=== PATIENT | female | born 1955 | race African-American/Black ===

== ENCOUNTER 2017-03-18 08:16 | Outpatient (CLI) | payer MEDICARE, OTHER ==
--- NOTE | 2017-03-18 11:39 | Ultrasound Report ---
RIGHT UPPER QUADRANT ULTRASOUND: HISTORY: Elevated liver enzymes. Technique: Transabdominal ultrasound imaging with Doppler interrogation. FINDINGS: The gallbladder is normal size, contour and wall thickness. There is a nonmobile 5 mm echogenic structure in the neck of the gallbladder which either represents a non-mobile gallstone or small polyp. The CBD measures 3 mm. The liver parenchyma is echogenic and attenuates the ultrasound beam consistent with fatty infiltration. No focal liver mass. Images of the pancreas, right kidney and aorta are within normal limits. No perihepatic ascites. IMPRESSION: Fatty liver. 5 mm nonmobile gallstone versus polyp. I favor a polyp. No signs of acute cholecystitis.
== END 2017-03-18 08:17 | disposition home or self-care (01) ==
LOC: US 08:16
PROVIDERS: ATTEND Family Medicine
DX: K76.0 Fatty (change of) liver, not elsewhere classified (principal); R74.8 Abnormal levels of other serum enzymes
CPT/HCPCS: 76705

== ENCOUNTER 2017-10-02 11:30 | Day surgery (SDC) | payer MEDICARE, OTHER ==
[2017-10-02] MEDS ORDERED: NACL 0.9% 1000 ML 1,000 ML ONE (13:19)
[2017-10-02] MEDS ORDERED: DIPRIVAN 10 MG/ML IV ONE (14:09)
--- NOTE | 2017-10-02 15:03 | Anesthesia Consultation ---
Anesthesia Consult and Med Hx Date of service: 10/02/17 - Airway Anesthetic Teeth Evaluation: Good ROM Head & Neck: Adequate Mental/Hyoid Distance: Adequate Mallampati Class: Class II Intubation Access Assessment: Probably Good - Pre-Operative Health Status ASA Pre-Surgery Classification: ASA2 Proposed Anesthetic Plan: MAC - Gastrointestinal Hx Gastroesophageal Reflux Disease: Yes
--- NOTE | 2017-10-02 15:03 | Anesthesia Day of Surgery ---
Anesthesia Day of Surgery - Day of Surgery Patient Examined: Yes Patient H&P Reviewed: Yes Patient is NPO: Yes
[2017-10-02 15:12] VITALS: BP 108/58
--- NOTE | 2017-10-02 15:22 | Discharge Summary ---
Short Stay Discharge Plan Activity: advance as tolerated Weight Bearing Status: Weight Bear as Tolerated Diet: regular Additional Instructions: Post Sedation D/C Instructions When you return home you may resume your regular diet unless otherwise directed. -Go directly home from the hospital and rest quietly. You may resume normal activities tomorrow. -Do NOT drive, return to work, operate any machinery or make any important personal or business decisions today. -Do NOT drink any alcohol or take nerve or sleeping drugs. They add to the effects of the medicine still present in your body. Follow up with Dr. Rosas in 2 weeks to obtain pathology results and treatment plan.
--- NOTE | 2017-10-02 15:22 | Operative Report ---
Operative Report Operative Report: Date: 10/02/2017 Operative Report: Date of procedure: 10/02/2017 Procedure: Esophagogastroduodenoscopy with multiple mucosal biopsies. Attending physician: Alex Rosas MD [employer]arn Texture Machine Operator: Alex Rosas MD Indication: Patient is a 62 -year-old female who presented with a history of recurrent epigastric pain, heartburn, dysphagia and indigestion. An upper endoscopy is done to assess patient, so that treatment may be directed based on the findings. Consent: Informed consent was obtained after advising the patient and family regarding nature of this procedure, its indications, potential benefits as well as possible complications including but not limited to bleeding perforation and adverse reaction to medication, infection as well as other cardiopulmonary complications. An informed written and verbal consent was then obtained after due opportunity was provided for questions and answers. Monitoring: Patient was monitored continuously with pulse oximetry and electrocardiographic recordings as well as blood pressure recordings. Vital signs remained stable throughout this procedure with no untoward events. Preoperative assessment: Patient was assessed immediately prior to this procedure for capacity to tolerate monitored anesthesia care and moderate sedation as well as general anesthesia. Patient's ASA classification is 3, Mallampati class is 2, Hyomental distance is 3. Instrument: [facility] video endoscope Medications: Ketamine given intravenously in divided doses. For details please refer to anesthesia records. Description of procedure: Patient was placed in the left lateral decubitus position after achieving sedation, the endoscope was introduced into the esophagus under direct vision. It was then advanced beyond the esophagus into the stomach and then beyond the stomach into the duodenum and to the second portion of the duodenum. It was subsequently withdrawn with careful inspection of all mucosal surfaces with the following findings. Findings: Patient has an irregular Z line at 37 cm. There was mild erosive esophagitis in the distal esophagus. There was a small diminutive sliding hiatal hernia seen on entry into the stomach. There was erythema and erosions seen in the gastric antrum. Biopsies of the antrum were obtained for histopathology. The duodenum was normal to second portion. Impression: Irregular Z line. Gastric antral erythema Gastric antral erosions Hiatal hernia. Plan: Continue treatment with proton pump inhibitors. Follow pathology report. Direct additional treatment based on the pathology report. Patient will be observed clinically. Additional recommendations will be made follow-up.
[2017-10-02] MEDS ORDERED: NACL 0.9% 1000 ML 1,000 ML IV SCH (16:00)
--- NOTE | 2017-10-03 19:17 | Post Anesthesia Evaluation ---
- Post Anesthesia Evaluation Patient Participated: Yes Airway Patent: Yes Stable Respiratory Function: Yes Nausea/Vomiting: No Temp > 96.8F: Yes Pain Manageable: Yes Adequeate Hydration: Yes Anesthesia Complications: No Block Receding Appropriately: Not Applicable
== END 2017-10-02 15:22 | disposition home or self-care (01) ==
LOC: GIO 11:30
PROVIDERS: ATTEND Internal Medicine Gastroenterology
DX: K21.0 Gastro-esophageal reflux disease with esophagitis (principal); K22.8 Other specified diseases of esophagus; K29.50 Unspecified chronic gastritis without bleeding; K44.9 Diaphragmatic hernia without obstruction or gangrene; I10 Essential (primary) hypertension; E11.9 Type 2 diabetes mellitus without complications; E78.00 Pure hypercholesterolemia, unspecified; E23.2 Diabetes insipidus; Z90.5 Acquired absence of kidney
CPT/HCPCS: 43239; 82962; 88305; 88342; J2704; J7030